=== PATIENT | male | born 1940 | race Two or more races ===

== ENCOUNTER 2024-11-26 17:37 | Inpatient (IN) | payer MEDICARE, OTHER ==
[~2024-11-26] VITALS: Ht 165.1 cm; Wt 74.4 kg
[2024-11-26] MEDS: PANTOPRAZOLE 40 MG VIAL IV ONE (18:00)
[2024-11-26] MEDS: ONDANSETRON HCL/PF 4 MG/2 ML VIAL IVP ONE (18:00)
[2024-11-26] MEDS ORDERED: ONDANSETRON HCL/PF 4 MG/2 ML VIAL ONE (18:04)
[2024-11-26] MEDS ORDERED: PANTOPRAZOLE 40 MG VIAL ONE (18:04)
[2024-11-26 18:20] LABS: BASOPHILS % (AUTO) 0.2 % (0.0-2.0); EOSINOPHILS # (AUTO) 0.1 K/uL (0.0-0.7); EOSINOPHILS % (AUTO) 1.4 % (0.0-6.0); HEMATOCRIT 41 % (39-51); HEMOGLOBIN 13.4 g/dL (13.5-17.5); LYMPHOCYTES # (AUTO) 0.2 K/uL (0.8-4.8); LYMPHOCYTES % (AUTO) 1.5 % (20.0-44.0); MEAN CORPUSCULAR HEMOGLOBIN 28 PG (26.0-33.0); MEAN CORPUSCULAR HGB CONC 32 g/dl (31.0-36.0); MEAN CORPUSCULAR VOLUME 87 fL (80-96); MONOCYTES # (AUTO) 0.3 K/uL (0.1-1.30); MONOCYTES % (AUTO) 2.4 % (2.0-12.0); NEUTROPHILS # (AUTO) 10.3 K/uL (1.8-8.9); NEUTROPHILS % (AUTO) 94.5 % (43.0-81.0); PLATELET COUNT (AUTO) 235 K/uL (150-450); RED BLOOD CELL COUNT(AUTO) 4.75 MIL/uL (4.5-6.0); RED CELL DISTRIBUTION WIDTH 18.1 % (11.5-15.0); WHITE BLOOD COUNT (AUTO) 10.9 K/uL (4.3-11.0)
[2024-11-26 18:32] LABS: INR 1.03 (0.91-1.10); PARTIAL THROMBOPLASTIN TIME 25.4 SEC (24.3-34.3); PROTHROMBIN TIME 10.9 SECS (9.2-11.1)
[2024-11-26 18:44] LABS: CALCIUM, SERUM 8.7 mg/dL (8.5-10.1); CARBON DIOXIDE 28 mmol/L (21-32); CHLORIDE 106 mmol/L (98-107); CREATININE 1.3 mg/dL (0.6-1.3); GLUCOSE 154 mg/dL (74-106); POTASSIUM 4.3 mmol/L (3.5-5.1); SODIUM SERUM 142 mmol/L (136-145); UREA NITROGEN, BLOOD 31 mg/dL (7-18)
[2024-11-26] MEDS ORDERED: IOHEXOL-300 100 ML VIAL IV ONE (18:58)
[2024-11-26] MEDS ORDERED: CT SWABBABLE VALVE TRANS SET 1 EA INFUS.SET MC ONE (18:58)
[2024-11-26] MEDS ORDERED: IV NS 0.9% 250 ML IV ONE (18:59)
[2024-11-26 19:02] LABS: ALANINE AMINOTRANSFERASE 23 U/L (12-78); ALBUMIN 3.3 g/dL (3.4-5.0); ALKALINE PHOSPHATASE 250 U/L (46-116); ASPARTATE AMINOTRANSFERASE 21 U/L (15-37); BILIRUBIN,DIRECT 0.1 mg/dL (0.0-0.2); BILIRUBIN,TOTAL 0.4 mg/dL (0.2-1.0); LIPASE 72 U/L (16-77); TOTAL PROTEIN, SERUM 7.8 g/dL (6.4-8.2)
[2024-11-26 19:33] LABS: APPEARANCE,URINE CLEAR (CLEAR); BILIRUBIN,URINE NEGATIVE (NEGATIVE); BLOOD, URINE NEGATIVE Ery/uL (NEGATIVE); COLOR,URINE YELLOW (YELLOW); KETONES,URINE TRACE mg/dL (NEGATIVE); LEUKOCYTE ESTERASE ,URINE NEGATIVE (NEGATIVE); NITRITE, URINE NEGATIVE (NEGATIVE); PROTEIN,URINE TRACE mg/dl (NEGATIVE); UGLUCOSE NEGATIVE (NEGATIVE); UROBILINOGEN,URINE 0.2 EU/dL (0.2)
[2024-11-26 19:47] LABS: MUCUS,URINE Few /LPF (None Seen)
[2024-11-26 19:48] LABS: ADD URINE CULTURE NO; BACTERIA,URINE Rare /HPF (None Seen); RBC,URINE 0-2 /HPF (0-2); SQUAMOUS EPITHELIAL CELL,UR Rare /HPF (None Seen); WBC,URINE 0-2 /HPF (0-3)
[2024-11-26] MEDS ORDERED: Z GUARD REMEDY 4 OZ OINT TP PRN (20:00)
[2024-11-26] MEDS ORDERED: MAGNESIUM HYDROXIDE 30 ML UDC PO PRN (20:00)
[2024-11-26] MEDS ORDERED: MAG HYDROX/AL HYDROX/SIMETH 30 ML UDC PO PRN (20:00)
[2024-11-26] MEDS ORDERED: ONDANSETRON HCL/PF 4 MG/2 ML VIAL IVP PRN (20:00)
[2024-11-26] MEDS ORDERED: DEXTROSE 50%-WATER 50 ML DISP.SYRIN IV PRN (20:00)
[2024-11-26] MEDS ORDERED: HYDROCODONE/APAP 5/325MG TABLET PO PRN (20:00)
[2024-11-26] MEDS ORDERED: ACETAMINOPHEN 325 MG TABLET PO PRN (20:00)
[2024-11-26 21:00] VITALS: BP 137/56; TEMP 98.4; O2SAT 96
[2024-11-26] MEDS: CEFTRIAXONE 1GM BAG (ER ONLY) 50 ML IV ONE (21:26)
[2024-11-26] MEDS: PANTOPRAZOLE 40 MG VIAL IV SCH (21:34)
[2024-11-26] MEDS: CEFTRIAXONE 1 G in IV D5W 50 ML IV SCH (21:34)
[2024-11-26] MEDS: INSULIN REGULAR, HUMAN 100 UNIT/ML 3 ML VIAL SQ PRN (22:16)
[2024-11-26] MEDS: BLOOD SUGAR DIAGNOSTIC 1 EACH STRIP IN SCH (22:17)
[2024-11-27] VITALS: BP 136/67; TEMP 98.8; O2SAT 97
[2024-11-27] MEDS: IV NS 0.9% 1,000 ML IV PRN (01:33)
[2024-11-27 06:16] LABS: BASOPHILS % (AUTO) 0.3 % (0.0-2.0); EOSINOPHILS # (AUTO) 0.3 K/uL (0.0-0.7); EOSINOPHILS % (AUTO) 5.7 % (0.0-6.0); HEMATOCRIT 37 % (39-51); HEMOGLOBIN 12.5 g/dL (13.5-17.5); LYMPHOCYTES # (AUTO) 0.4 K/uL (0.8-4.8); LYMPHOCYTES % (AUTO) 7.2 % (20.0-44.0); MEAN CORPUSCULAR HEMOGLOBIN 29 PG (26.0-33.0); MEAN CORPUSCULAR HGB CONC 34 g/dl (31.0-36.0); MEAN CORPUSCULAR VOLUME 86 fL (80-96); MONOCYTES # (AUTO) 0.4 K/uL (0.1-1.30); MONOCYTES % (AUTO) 7.1 % (2.0-12.0); NEUTROPHILS # (AUTO) 4.8 K/uL (1.8-8.9); NEUTROPHILS % (AUTO) 79.7 % (43.0-81.0); PLATELET COUNT (AUTO) 218 K/uL (150-450); RED BLOOD CELL COUNT(AUTO) 4.32 MIL/uL (4.5-6.0); RED CELL DISTRIBUTION WIDTH 17.9 % (11.5-15.0); WHITE BLOOD COUNT (AUTO) 6.1 K/uL (4.3-11.0)
[2024-11-27 06:53] LABS: CREATININE 1.1 mg/dL (0.6-1.3); MAGNESIUM 1.9 mg/dL (1.8-2.4); PHOSPHORUS 3.1 mg/dL (2.5-4.9)
[2024-11-27 08:00] VITALS: BP_SYST 138; BP_DIAS 58; BP_DIAS 64; TEMP 97.9; O2SAT 96
[2024-11-27] MEDS ORDERED: ASCO-495 PO (08:06)
[2024-11-27] MEDS ORDERED: INSU100V39 SQ (08:06)
[2024-11-27] MEDS ORDERED: MAGN400O6 PO (08:06)
[2024-11-27] MEDS ORDERED: FERR325T28 PO (08:06)
[2024-11-27] MEDS ORDERED: SERT100T12 PO (08:06)
[2024-11-27] MEDS ORDERED: ALBU8.5H8 IH (08:06)
[2024-11-27] MEDS ORDERED: LATA7.5D EACHEYE (08:06)
[2024-11-27] MEDS ORDERED: DONE5TAB7 PO (08:06)
[2024-11-27] MEDS ORDERED: SITA50TA PO (08:06)
[2024-11-27] MEDS ORDERED: CLON0.1T PO (08:06)
[2024-11-27] MEDS ORDERED: CLOP75TA15 PO (08:06)
[2024-11-27] MEDS ORDERED: NA P133E RC (08:06)
[2024-11-27] MEDS ORDERED: METF-440 PO (08:06)
[2024-11-27] MEDS ORDERED: ACET-868 PO (08:06)
[2024-11-27] MEDS ORDERED: CALC-494 PO (08:06)
[2024-11-27] MEDS ORDERED: ONDA4TAB5 PO (08:06)
[2024-11-27] MEDS ORDERED: ALPR0.5T8 PO (08:06)
[2024-11-27] MEDS ORDERED: GLUC1KIT IM (08:06)
[2024-11-27] MEDS ORDERED: PANT40TA2 PO (08:06)
[2024-11-27] MEDS ORDERED: VIBEGRON PO (08:06)
[2024-11-27] MEDS ORDERED: DIPH25CA83 PO (08:06)
[2024-11-27] MEDS ORDERED: BRIN8DRO2 EACHEYE (08:06)
[2024-11-27] MEDS ORDERED: LACT20SO4 PO (08:06)
[2024-11-27] MEDS ORDERED: BISA10SU11 RC (08:06)
[2024-11-27] MEDS ORDERED: FOLI0.4T6 PO (08:06)
[2024-11-27] MEDS ORDERED: ASPI-1169 PO (08:06)
[2024-11-27] MEDS ORDERED: MEMA10TA PO (08:06)
[2024-11-27] MEDS ORDERED: GUAI100S69 PO (08:06)
[2024-11-27] MEDS ORDERED: INSU100V7 SQ (08:06)
[2024-11-27] MEDS ORDERED: FOLI0.8T23 PO (08:06)
[2024-11-27] MEDS: PSYLLIUM SEED 1 PKT PACKET PO SCH (08:33)
[2024-11-27 16:00] VITALS: BP 104/69; TEMP 98.1; O2SAT 97
[2024-11-27 20:00] VITALS: BP 129/55; TEMP 98.8; O2SAT 97
[2024-11-28] MEDS: ALPRAZOLAM 0.25 MG TABLET PO PRN (05:39)
[2024-11-28 07:49] LABS: CALCIUM, SERUM 8.9 mg/dL (8.5-10.1); CREATININE 1.1 mg/dL (0.6-1.3); POTASSIUM 3.9 mmol/L (3.5-5.1)
[2024-11-28 08:00] VITALS: BP 166/64; TEMP 97.9; O2SAT 98
[2024-11-28 08:30] LABS: BASOPHILS % (AUTO) 0.4 % (0.0-2.0); EOSINOPHILS # (AUTO) 0.6 K/uL (0.0-0.7); EOSINOPHILS % (AUTO) 13.1 % (0.0-6.0); HEMATOCRIT 36 % (39-51); HEMOGLOBIN 11.7 g/dL (13.5-17.5); LYMPHOCYTES # (AUTO) 0.6 K/uL (0.8-4.8); LYMPHOCYTES % (AUTO) 14.3 % (20.0-44.0); MEAN CORPUSCULAR HEMOGLOBIN 29 PG (26.0-33.0); MEAN CORPUSCULAR HGB CONC 33 g/dl (31.0-36.0); MEAN CORPUSCULAR VOLUME 87 fL (80-96); MONOCYTES # (AUTO) 0.5 K/uL (0.1-1.30); MONOCYTES % (AUTO) 11.5 % (2.0-12.0); NEUTROPHILS # (AUTO) 2.7 K/uL (1.8-8.9); NEUTROPHILS % (AUTO) 60.7 % (43.0-81.0); PLATELET COUNT (AUTO) 196 K/uL (150-450); RED BLOOD CELL COUNT(AUTO) 4.12 MIL/uL (4.5-6.0); RED CELL DISTRIBUTION WIDTH 17.6 % (11.5-15.0); WHITE BLOOD COUNT (AUTO) 4.4 K/uL (4.3-11.0)
[2024-11-28] MEDS ORDERED: ANESTHESIA TRAY IN PYXIS 1 EA TRAY MC ONE (14:41)
[2024-11-28 16:00] VITALS: BP 131/76; TEMP 97.7; O2SAT 95
[2024-11-28 20:00] VITALS: BP 128/79; TEMP 98.2; O2SAT 97
[2024-11-29 06:50] LABS: BASOPHILS % (AUTO) 0.3 % (0.0-2.0); CALCIUM, SERUM 8.6 mg/dL (8.5-10.1); CREATININE 0.9 mg/dL (0.6-1.3); EOSINOPHILS # (AUTO) 0.5 K/uL (0.0-0.7); EOSINOPHILS % (AUTO) 9.3 % (0.0-6.0); HEMATOCRIT 37 % (39-51); HEMOGLOBIN 12.3 g/dL (13.5-17.5); LYMPHOCYTES # (AUTO) 0.8 K/uL (0.8-4.8); LYMPHOCYTES % (AUTO) 13.4 % (20.0-44.0); MEAN CORPUSCULAR HEMOGLOBIN 29 PG (26.0-33.0); MEAN CORPUSCULAR HGB CONC 33 g/dl (31.0-36.0); MEAN CORPUSCULAR VOLUME 86 fL (80-96); MONOCYTES # (AUTO) 0.6 K/uL (0.1-1.30); NEUTROPHILS # (AUTO) 3.9 K/uL (1.8-8.9); PLATELET COUNT (AUTO) 196 K/uL (150-450); POTASSIUM 3.8 mmol/L (3.5-5.1); RED CELL DISTRIBUTION WIDTH 17.4 % (11.5-15.0); WHITE BLOOD COUNT (AUTO) 5.8 K/uL (4.3-11.0)
[2024-11-29 08:00] VITALS: BP 132/105; TEMP 98.2; O2SAT 98
== END 2024-11-29 15:17 | DRG 368 ==
LOC: ER 17:46 → TELE 20:42 → MED 11-27 00:07
PROVIDERS: ADMIT Nurse Practitioner Acute Care; ATTEND Nurse Practitioner Acute Care
PROC: 0DB68ZX Excision of Stomach, Via Natural or Artificial Opening Endoscopic, Diagnostic (ICD-10-PCS; principal; 2024-11-28)
DX: K21.01 Gastro-esophageal reflux disease with esophagitis, with bleeding (principal); K29.71 Gastritis, unspecified, with bleeding; F01.53 Vascular dementia, unspecified severity, with mood disturbance; L03.115 Cellulitis of right lower limb; K22.70 Barrett's esophagus without dysplasia; H40.9 Unspecified glaucoma; E11.9 Type 2 diabetes mellitus without complications; E78.5 Hyperlipidemia, unspecified; F32.A Depression, unspecified; I10 Essential (primary) hypertension; K44.9 Diaphragmatic hernia without obstruction or gangrene; K57.30 Diverticulosis of large intestine without perforation or abscess without bleeding; Z96.641 Presence of right artificial hip joint; Z79.4 Long term (current) use of insulin; I69.344 Monoplegia of lower limb following cerebral infarction affecting left non-dominant side; I69.341 Monoplegia of lower limb following cerebral infarction affecting right dominant side
CPT/HCPCS: 36415; 71045-TC; 80048-TC; 80076-TC; 81001; 82962-TC; 83690-TC; 83735-TC; 84100-TC; 84484-TC; 85025-TC; 85730-TC; 86850-TC; 87081-TC; 93971-TC; 97110-TC; 97112-TC; 97116-TC; 97530-TC; A4223; G0378; J0696; J1815; J2405; J2470; J2704; J7030; J7050; J7060; Q9967